=== PATIENT | male | born 1960 | race Caucasian/White ===

== ENCOUNTER 2025-05-08 13:55 | Outpatient (CLI) | payer OTHER | END 2025-05-08 13:56 | disposition home or self-care (01) | LOC: SCSRAD 13:55 | PROVIDERS: ATTEND Nurse Practitioner Family | DX: S89.92XA Unspecified injury of left lower leg, initial encounter (principal); S59.902A Unspecified injury of left elbow, initial encounter ==

== ENCOUNTER 2025-05-29 08:36 | Outpatient (CLI) | payer BC | END 2025-05-29 08:37 | disposition home or self-care (01) | LOC: RAD 08:36 | PROVIDERS: ATTEND Internal Medicine Critical Care Medicine | DX: R06.00 Dyspnea, unspecified (principal) | CPT/HCPCS: 71046 ==

== ENCOUNTER 2025-06-28 09:02 | Outpatient (CLI) | payer BC | END 2025-06-28 09:03 | disposition home or self-care (01) | LOC: RAD 09:02 | PROVIDERS: ATTEND Internal Medicine Critical Care Medicine | DX: R06.00 Dyspnea, unspecified (principal); J18.1 Lobar pneumonia, unspecified organism | CPT/HCPCS: 71046 ==

== ENCOUNTER 2025-08-09 15:36 | Outpatient (CLI) | payer BC | END 2025-08-09 15:37 | disposition home or self-care (01) | LOC: SJX 15:36 | PROVIDERS: ATTEND Internal Medicine Critical Care Medicine | DX: R91.1 Solitary pulmonary nodule (principal) | CPT/HCPCS: 71250 ==